=== PATIENT | male | born 1960 | race Caucasian/White ===

== ENCOUNTER 2017-06-13 17:02 | Emergency (ER) | payer MEDICARE, MEDICAID, SELFPAY ==
[2017-06-13 17:03] VITALS: BP 145/118; PULSE 96; RESP 18; TEMP 36.1; O2SAT 99; BMI 27.3
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
[2017-06-13] MEDS: oxyCODONE 5 MG Tablet 10 MG PO (18:56)
[2017-06-13 19:57] VITALS: BP 144/106; PULSE 89; O2SAT 97
[2017-06-13] MEDS: HYDROcodone Bitartrate/Apap 5/325 Tablet PO (19:58)
== END 2017-06-13 20:01 | disposition home or self-care (01) ==
LOC: ED 18:34
PROVIDERS: Emergency Provider Emergency Medicine; Family Provider Family Medicine Geriatric Medicine; PCP Family Medicine Geriatric Medicine
DX: S20.211A Contusion of right front wall of thorax, initial encounter (principal); S30.1XXA Contusion of abdominal wall, initial encounter; Y04.2XXA Assault by strike against or bumped into by another person, initial encounter; Y93.9 Activity, unspecified; Y92.89 Other specified places as the place of occurrence of the external cause; Y99.9 Unspecified external cause status; I31.3 Pericardial effusion (noninflammatory); I10 Essential (primary) hypertension; E78.00 Pure hypercholesterolemia, unspecified; Z72.0 Tobacco use
CPT/HCPCS: 71250; 74176; 99283

== ENCOUNTER → 2018-06-10 15:25 | Outpatient (CLI) | payer MEDICARE, MEDICAID, SELFPAY ==
[2018-06-10 16:37] LABS: Absolute Lymphocyte Count 2.54 X10^3/ul (0.83-4.51); Absolute Neutrophil Count 3.1 X10^3/uL (2.0-7.7); Basophil# 0.05 X10^3/uL; Basophil% 0.7 % (0-1); Eosinophil# 0.33 X10^3/uL; Eosinophils% 4.9 % (0-5); Hematocrit 42.7 % (40-54); Hemoglobin 13.9 g/dl (13.0-16.5); Lymphocyte # 2.54 X10^3/ul (4.0); Lymphocyte % 37.4 % (19-41); Mean Corp Hgb Conc 32.6 g/gl (32-36); Mean Corpuscular Hgb 32.3 pg (27.0-32.0); Mean Corpuscular Volume 99.1 fL (80-94); Mean Platelet Vol. 9.7 fl (6.2-12.0); Monocyte# 0.82 X10^3/uL; Monocyte% 12.1 % (0-10); Neutrophil # 3.05 X10^3/uL (2.7-7.7); Neutrophil % 44.8 % (47-70); Platelet Count 213 K/mm3 (150-450); RBC Distribution Width CV 14.1 % (11.6-14.6); RBC Distribution Width SD 51.3 fl (35.1-43.9); Red Blood Count 4.31 M/mm3 (4.6-6.2); White Blood Count 6.8 K/mm3 (4.4-11.0)
[2018-06-10 16:41] LABS: POSITIVE COUNT NO; POSITIVE DIFFERENTIAL NO; POSITIVE MORPHOLOGY NO
[2018-06-10 17:02] LABS: Vitamin D,25 Hydroxy 14.3 ng/mL (29.95-100.01)
[2018-06-10 17:08] LABS: ALB/GLOB Ratio 0.7 RATIO (0.9-2.4); AST(SGOT) 129 U/L (15-37); Alanine Aminotransfer ALT/SGPT 172 U/L (16-61); Albumin, Serum 2.9 g/dL (3.2-5.0); Alkaline Phosphatase 99 U/L (45-117); Anion Gap 7 (5-15); BUN 12 mg/dL (7-18); BUN/Creat Ratio 15.5 RATIO (10-20); Calcium,Total 8.7 mg/dL (8.5-10.1); Chloride 102 mmol/L (98-107); Creatinine, Serum 0.77 mg/dL (0.70-1.30); EST Glomerular Filtration Rate 110 mL/min (>60); Est Glom Filt Rate - Afr Amer 133 mL/min (>60); Glucose 89 mg/dL (74-106); PSA,Total - Annual Screen 0.61 ng/mL (0.00-4.00); Potassium 4.1 mmol/L (3.5-5.1); Protein, Total 6.9 g/dL (6.4-8.2); Sodium Level 139 mmol/L (136-145); Thyroid Stim Hormone (TSH) 2.13 uIU/mL (0.358-3.74)
[2018-06-12 13:12] LABS: Hep C Antibodies >11.0 s/co ratio (0.0-0.9)
== END ==
PROVIDERS: Family Provider Family Medicine Geriatric Medicine; PCP Family Medicine Geriatric Medicine; Visit Provider Family Medicine Geriatric Medicine
DX: I10 Essential (primary) hypertension (principal); E55.9 Vitamin D deficiency, unspecified; Z13.89 Encounter for screening for other disorder; Z12.5 Encounter for screening for malignant neoplasm of prostate
CPT/HCPCS: 36415; 80053; 82306; 84153; 84443; 85025; 86803; G0103

== ENCOUNTER → 2018-06-15 16:13 | Outpatient (CLI) | payer MEDICARE, MEDICAID, SELFPAY | PROVIDERS: Family Provider Family Medicine Geriatric Medicine; PCP Family Medicine Geriatric Medicine; Visit Provider Family Medicine Geriatric Medicine | DX: B17.10 Acute hepatitis C without hepatic coma (principal) | CPT/HCPCS: 36415 ==

== ENCOUNTER → 2018-06-30 14:50 | Outpatient (CLI) | payer MEDICARE, MEDICAID, SELFPAY ==
[2018-06-30 16:56] LABS: ALB/GLOB Ratio 0.8 RATIO (0.9-2.4); AST(SGOT) 68 U/L (15-37); Alanine Aminotransfer ALT/SGPT 107 U/L (16-61); Albumin, Serum 3.3 g/dL (3.2-5.0); Alkaline Phosphatase 116 U/L (45-117); Anion Gap 4 (5-15); BUN 14 mg/dL (7-18); BUN/Creat Ratio 16.8 RATIO (10-20); Calcium,Total 8.5 mg/dL (8.5-10.1); Chloride 109 mmol/L (98-107); Creatinine, Serum 0.84 mg/dL (0.70-1.30); EST Glomerular Filtration Rate 100 mL/min (>60); Est Glom Filt Rate - Afr Amer 121 mL/min (>60); Globulin 4.2 g/dL (2.2-4.2); Glucose 100 mg/dL (74-106); Potassium 4.1 mmol/L (3.5-5.1); Protein, Total 7.5 g/dL (6.4-8.2); Sodium Level 138 mmol/L (136-145)
[2018-06-30 17:40] LABS: HIV - WCH Non-Reactive (Nonreactive)
== END ==
PROVIDERS: Family Provider Family Medicine Geriatric Medicine; PCP Family Medicine Geriatric Medicine; Visit Provider Family Medicine Geriatric Medicine
DX: K74.69 Other cirrhosis of liver (principal); F10.20 Alcohol dependence, uncomplicated; Z20.828 Contact with and (suspected) exposure to other viral communicable diseases
CPT/HCPCS: 36415; 80053; 80320; 86703; G0480

== ENCOUNTER → 2019-11-24 11:09 | Outpatient (CLI) | payer MEDICARE, MEDICAID, SELFPAY ==
[2019-11-24 15:44] LABS: AST(SGOT) 16 U/L (15-37); Alanine Aminotransfer ALT/SGPT 18 U/L (16-61); Albumin, Serum 3.1 g/dL (3.2-5.0); Alkaline Phosphatase 76 U/L (45-117); CRP 7.12 mg/L (0.0-3.0); GGTP 13 U/L (15-85); Globulin 3.9 g/dL (2.2-4.2); T4 Total, Thyroxin 6.1 ug/dL (4.5-12.1); Thyroid Stim Hormone (TSH) 3.35 uIU/mL (0.358-3.74)
[2019-11-26 20:07] LABS: Endomysial Antibody IgA Negative (Negative)
[2019-11-26 20:27] LABS: Immunoglobulin A 377 mg/dL (90-386); t-Transglutaminase IgA <2 U/mL (0-3)
== END ==
PROVIDERS: PCP Family Medicine Geriatric Medicine; Referring Provider Internal Medicine Gastroenterology; Visit Provider Internal Medicine Gastroenterology
DX: B19.20 Unspecified viral hepatitis C without hepatic coma (principal); K59.00 Constipation, unspecified; R10.9 Unspecified abdominal pain
CPT/HCPCS: 36415; 80076; 82784; 82977; 83516; 84436; 84443; 86140; 86255

== ENCOUNTER → 2022-03-16 | Outpatient (CLI) | payer MEDICARE, SELFPAY ==
--- NOTE | 2022-03-16 10:20 | US_ITS ---
STUDY: ABDOMINAL ULTRASOUND - RIGHT UPPER QUADRANT REASON FOR VISIT: Male, 61 years old abnormal LFTs TECHNIQUE: Ultrasound evaluation of the right upper quadrant was performed with real-time and static melchor-scale imaging. TECHNICAL QUALITY: Limited. Examination limited by bowel gas. COMPARISON: None. FINDINGS: Liver: The liver measures 16.1 cm. There is a heterogeneous echogenicity of the liver. The bile ducts are within normal limits. There is hepatic color flow. The direction of portal flow is hepatopetal. There is no demonstrated mass lesion. Gallbladder: Normal distended gallbladder. The gallbladder wall measures 1 mm. There is a negative sonographic Vasques''s sign. There is no pericholecystic fluid. There are no gallstones. Common Bile Duct (C.B.D.): The common bile duct measures 5 mm. Pancreas: Visualized pancreas is sonographically normal Right Kidney: Normal size of the right kidney. The right kidney measures 11.0 x 5.3 x 4.7 cm. Normal renal cortex. The right cortex measures 1.3 cm. There is no demonstrated renal mass or cyst. There is no right hydronephrosis. US/Liver IMPRESSION: Heterogeneous echotexture within the liver suggests early fatty infiltration, no discrete lesion. Electronically Signed: Nate Landaverde MD at 10:58 EST ,
[2022-03-16 11:36] LABS: Anion Gap 7 (5-15); BUN 15 mg/dL (7-18); BUN/Creat Ratio 16.6 RATIO (10-20); Calcium,Total 8.8 mg/dL (8.5-10.1); Chloride 105 mmol/L (98-107); EST Glomerular Filtration Rate 90 mL/min (>60); Est Glom Filt Rate - Afr Amer 109 mL/min (>60); Glucose 113 mg/dL (74-106); Potassium 4.3 mmol/L (3.5-5.1); Sodium Level 142 mmol/L (136-145)
== END | disposition home or self-care (01) ==
PROVIDERS: PCP Nurse Practitioner Primary Care; Referring Provider Internal Medicine Cardiovascular Disease; Visit Provider Internal Medicine Cardiovascular Disease
DX: B19.20 Unspecified viral hepatitis C without hepatic coma (principal); I50.22 Chronic systolic (congestive) heart failure; I48.91 Unspecified atrial fibrillation
CPT/HCPCS: 36415; 76705; 80048

== ENCOUNTER → 2023-04-01 | Outpatient (CLI) | payer MEDICARE, SELFPAY ==
--- OUTSIDE RECORDS SUMMARY | 2023-04-01 12:33 | XMS RPT_ITS | CCD ---
Author Name Unknown Address [address] [place] [address] Organization [facility] Care Team Providers Care Healthcare Advisory Services Manager Name Role Phone Gabbie Blu Timbo Unavailable Unavailable PHYSICIAN, MISC Unavailable Unavailable TYRESE CONKLIN Primary Care Physician ([phone]) TYRESE CONKLIN Primary Care Physician ([phone]) CARRINGTON KUNZ DO Primary Care Physician CARRINGTON KUNZ DO Primary Care Unavailable CARRINGTON KUNZ DO Attending Unavailable CARRINGTON KUNZ DO Attending Unavailable CARRINGTON KUNZ DO Primary Care Unavailable Medications Current Medications Medication Drug Class(es) Dates Sig (Normalized) Sig (Original) carvedilol 25 mg oral tablet (4 sources) alpha-Adrenergic Reina, beta-Adrenergic Reina Start: 09-20-2022 carvedilol 25 mg oral tablet Dose : 25 mg = 1 tab(s), Oral, BIDM, # 180 tab(s), 0 Refill(s), Pharmacy: [facility], 165.1, cm, 09/20/22 14:06:00 EDT, Height, kg, 09/20/22 14:06:00 EDT, Dosing Weight Start Date: 09/20/22 Status: Ordered Problems Problem Classification Problem Date Documented Da te Episodic/Chronic Cardiac dysrhythmias (4 sources) Atrial fibrillation 09-21-2018 Chronic Coagulation and hemorrhagic disorders (2 sources) Hypercoagulability state 08-01-2022 Chronic Conduction disorders (4 sources) Long QT syndrome; Translations: [Long QT syndrome] Chronic Congestive heart failure; nonhypertensive (7 sources) Chronic systolic heart failure; Translations: [Diastolic heart failure] 09-21-2019 Chronic Coronary atherosclerosis and other heart disease (4 sources) Coronary arteriosclerosis 12-06-2019 Chroni c Disorders of lipid metabolism (4 sources) Dyslipidemia; Translations: [Pure hyperglyceridemia] 10-05-2019 Chronic Essential hypertension (4 sources) Hypertensive disorder; Translations: [Essential hypertension] 09-21-2019 Chronic Hepatitis (2 sources) Viral hepatitis C 09-21-2018 Episodic Mood disorders (4 sources) Depressive disorder; Translations: [Major depression in full remission] 09-21-2018 Chronic Other aftercare (2 sources) Long-term current use of anticoagulant 08-01-2022 Episodic Other bone disease and musculoskeletal deformities (2 sources) Avascular necrosis of bone 12-23-2020 Chronic Other bone disease and musculoskeletal deformities (2 sources) Avascular necrosis of bone of hip 08-01-2022 Chronic Results Test Name Value Interpretation Reference Range Facil ity Encounters Encounter Date Encounter Type Care Provider Facility Start: 03-31-2023 End: 03-31-2023 Patient encounter procedure BRITTON FARAH MD [facility] Start: 01-22-2023 End: 01-23-2023 ambulatory CARRINGTON KUNZ DO Facility:[facility] Start: 09-12-2022 End: 09-13-2022 ambulatory CARRINGTON KUNZ DO Facility:[facility] Start: 09-12-2022 End: 09-12-2022 Patient encounter procedure CARRINGTON KUNZ DO [facility] Start: 12-20-2021 End: 12-20-2021 Patient encounter procedure TYRESE HSU [employer]AL CARETAKER[employer]LAYUP WORKER [facility] Start: 07-02-2021 End: 07-02-2021 Patient encounter procedure TYRESE HSU [employer]IMAL CARETAKER[employer]LAYUP WORKER [facility] Start: 09-15-2017 End: 09-15-2017 Emergency department patient visit [facility] Facility:[facility] Procedures Date Procedure Procedure Detail Performing Clinician Start: 10-28-2019 Cardiac catheterization TYRESE HSU [employer]AL CARETAKER-LAYUP WORKER Start: 09-15-2019 Echocardiography TYRESE RODRIGUEZ [employer]IMAL CARETAKER-LAYUP WORKER Immunizations Immunization Date Immunization Notes Care Provider Fa cility 01-24-2023 influenza, injectabl e, quadrivalent, contains preservative; Translations: [Fluarix PF Quadrivalent ] BRITTON FARAH MD [facility] 09-20-2022 tetanus toxoid, redu asaf diphtheria toxoid, and acellular pertussis vaccine, adsorbed; Translations: [Boostrix (Tdap)] BRITTON FARAH MD [facility] Payers Date Payer Category Payer Unknown [id number] 1960 Unknown [id number] 1960 Unknown [id number] Medicare [id number] Social History Date Type Detail Facility Start: 09-21-2018 End: 12-20-2021 Tobacco smoking status Ex-smoker (finding) [facility] Evaluation + Plan note 07-04-2021 Laboratory Note Date & Type Note Facility 07-04-2021 Evaluation + Plan note Future Scheduled TestsFolate Level 07/04/21Prostate Specific Antigen 12/26/20Vitamin B12 Level 07/04/21Complete Blood Count 12/20/21Complete Blood Count 12/26/20Complete Blood Count 12/04/21Lipid Profile 12/20/21Lipid Profile 12/26/20Lipid Profile 12/04/21Complete Metabolic Panel 12/20/21Complete Metabolic Panel 12/26/20Complete Metabolic Panel 12/04/21 [facility] Evaluation + Plan note LaboratoryRadiology Note Date & Type Note Facility Evaluation + Plan note Future Appointments Appointment Date:12/14/2021 03:30:00 PM Scheduled Provider:TYRESE HSU Location:[facility] Appointment Type: OV Future Scheduled TestsProstate Specific Antigen 12/26/20Complete Blood Count 12/26/20Lipid Profile 12/26/20Complete Metabolic Panel 12/26/20XR Ribs 2 Views Left/PA Chest (AO) 08/14/20XR Chest 2 Views (PA & Lateral) 08/04/20 [facility] Evaluation + Plan note Note Date & Type Note Facility Evaluation + Plan note Future Appointments Appointment Date:09/20/2022 02:00:00 PM Scheduled Provider:CARRINGTON KUNZ DO Location:[facility] Appointment Type:PC OV Diagnostic Tests PendingLDL-Cholesterol, Direct 09/12/22 [facility] Evaluation + Plan note Laboratory Note Date & Type Note Facility Evaluation + Plan note Future Appointments Appointment Date:07/25/2023 03:00:00 PM Scheduled Provider:CARRINGTON KUNZ DO Location:[facility] Appointment Type:PC OV Future Scheduled TestsAlbumin/Creatinine Ratio, Random Urine 09/20/22 [facility] Hospital course Narrative Note Date & Type Note Facility Hospital course Narrative No data available for this section [facility] Hospital Discharge instructions Note Date & Type Note Facility Hospital Discharge instructions No data available for this section [facility] Progress note Note Date & Type Note Facility Progress note No data available for this section [facility] Summary Purpose Family History No Family History Records Found No data available for this section No Family History Records Found No data available for this section Advance Directives No Advanced Directives Records FoundNo Advanced Directives Records Found Additional Source Comments (unrecognized sect ion and content) No Status Records FoundNo Status Records Found INFORMATION SOURCE (unrecogn ized section and content) DATE CREATED AUTHOR AUTHOR'S ORGANIZ ATION 01/25/2023 [facility] ([place]) Care Team (unrecognized sect ion and content) Personnel Name: TYRESE HSU Address: [address] [place] [address]- Care Team Personnel Name: DARRYL COKER MD Position: Physician Member Role: Road Commissioner Address: Address: [address] [facility] [address] [place] [address]- [place] Name: GISELLA AVENDANO MD Position: P4 Physician - Cardiology Member Role: Operator Command Support Systems Address: Address: [address] [facility] [address] [id number]- Name: CARRINGTON KUNZ DO Position: P4 Physician - Primary Care Member Role: Primary Care Physician Address: Address: [address] [place] [id number]- Care Team Related Persons Name: ARNOLD LUCAS Care Team Personnel Name: DARRYL COKER MD Position: Physician Member Role: Road Commissioner Address: Address: [address] [facility] [address] [place] [address]- Name: GISELLA AVENDANO MD Position: P4 Physician - Cardiology Member Role: Operator Command Support Systems Address: Address: [facility] [place] [id number]- [place] Name: CARRINGTON KUNZ DO Position: P4 Physician - Primary Care Member Role: Primary Care Physician Address: Address: [address] [place] [address]- Care Team Related Persons Name: ARNOLD LUCAS Care Team (unrecognized sect ion and content) Care Team Personnel Name: TYRESE HSULAYUP WORKER Position: P4 Advanced Practice Nurse Member Role: Primary Care Physician Address: Address: [address] [place] [address]- Name: DARRYL COKER MD Position: Physician Member Role: Road Commissioner Address: Address: [address] [facility] [address] [place] [address]- [place] Name: GISELLA AVENDANO MD Position: P4 Physician - Cardiology Member Role: Operator [employer] Support Systems Address: Address: [address] [facility] [address] [place] [id number]- Care Team Related Persons Name: ARNOLD LUCAS FOR RECORDS PERTAINING TO PATIENTS WHO ARE OR HAVE BEEN ENROLLED IN A CHEMICAL DEPENDENCY/SUBSTANCEABUSE PROGRAM, SOME INFORMATION MAY BE OMITTED. This clinical summary was aggregated from multiple sources. Caution should be exercised in using it in the provision of clinical care. This summary normalizes information from multiple sources, and as a consequence, information in this document may materially change the coding, format and clinical context of patient data. In addition, data may be omitted in some cases. CLINICAL DECISIONS SHOULD BE BASED ON THE PRIMARY CLINICAL RECORDS. [facility]. provides no warranty or guarantee of the accuracy or completeness of information in this document.
[2023-04-01 13:50] LABS: Anion Gap 4 (5-15); BUN 22 mg/dL (7-18); BUN/Creat Ratio 24.8 RATIO (10-20); Calcium,Total 9.6 mg/dL (8.5-10.1); Chloride 104 mmol/L (98-107); Creatinine, Serum 0.89 mg/dL (0.70-1.30); EST Glomerular Filtration Rate 92 mL/min (>60); Est Glom Filt Rate - Afr Amer 111 mL/min (>60); Glucose 101 mg/dL (74-106); Sodium Level 135 mmol/L (136-145)
== END | disposition home or self-care (01) ==
LOC: LAB 12:15
PROVIDERS: PCP Nurse Practitioner Primary Care; Referring Provider Internal Medicine Cardiovascular Disease; Visit Provider Internal Medicine Cardiovascular Disease
DX: I42.8 Other cardiomyopathies (principal); I42.9 Cardiomyopathy, unspecified; I50.22 Chronic systolic (congestive) heart failure; I48.91 Unspecified atrial fibrillation; I12.9 Hypertensive chronic kidney disease with stage 1 through stage 4 chronic kidney disease, or unspecified chronic kidney disease
CPT/HCPCS: 36415; 80048

== ENCOUNTER → 2024-05-14 | Outpatient (CLI) | payer MEDICARE, SELFPAY ==
--- NOTE | 2024-05-14 13:56 | ECHOCS_ITS ---
Reason For Study Reason For Study: CAD/ASHD Procedure This was a 2D Doppler, Color Flow transthoracic echocardiogram. The study was technically difficult. Due to body habitus. Contrast injection was performed. Exam performed in department. Left Ventricle Mild concentric left ventricular hypertrophy. Normal LV size. The left ventricular ejection fraction is 65 %. Stage 1 diastolic dysfunction. Right Ventricle Normal right ventricle. Atria There is severe biatrial dilatation. Mitral Valve Trivial mitral valve insufficiency. Tricuspid Valve Trivial tricuspid valve insufficiency. Normal pulmonary artery pressure. Aortic Valve Trisinus/trileaflet aortic valve. Pulmonic Valve The pulmonic valve is not well visualized. Great Vessels Mildly dilated aortic root. Pericardium/Pleural No pericardial effusion. Medication 22 gauge I.V. with prn adaptor inserted into left arm. Diluted definity 3.0ml given slow IV push to enhance endocardial definition. MMode/2D Measurements & Calculations LVIDd: 5.8 cm IVSd: 1.2 cm Ao root diam: 4.1 cm LVIDs: 4.2 cm LVPWd: 1.3 cm RVDd: 3.5 cm FS: 27.0 % LAV(MOD-bp): 97.9 ml LVAd ap4: 21.9 cm2 SV(MOD-sp4): 35.2 ml LAV(MOD-bp) Indexed: 45.5 ml/m2 LVLd ap4: 7.2 cm SI(MOD-sp4): 16.4 ml/m2 LAV(MOD-sp2): 80.9 ml EDV(MOD-sp4): 56.3 ml LAV(MOD-sp4): 112.2 ml EDV(sp4-el): 56.6 ml LVAs ap4: 11.9 cm2 LVLs ap4: 5.8 cm ESV(MOD-sp4): 21.1 ml ESV(sp4-el): 20.9 ml EF(MOD-sp4): 62.6 % EF(sp4-el): 63.0 % SV(sp4-el): 35.7 ml LA A4 area: 31.6 cm2 LA dimension(2D): 5.9 cm RA A4 area: 18.1 cm2 TAPSE: 2.2 cm Doppler Measurements & Calculations MV E max khadra: 78.5 cm/sec Ao V2 max: 110.1 cm/sec LV V1 max: 61.4 cm/sec Ao max P.9 mmHg LV V1 max P.5 mmHg Ao V2 mean: 86.8 cm/sec LV V1 mean P.96 mmHg Ao mean P.2 mmHg LV V1 mean: 47.3 cm/sec Ao V2 VTI: 20.8 cm LV V1 VTI: 12.2 cm AV (velocity ratio): 0.59 PA V2 max: 67.8 cm/sec TR max khadra: 237.5 cm/sec PA V2 mean: 52.3 cm/sec TR max P.6 mmHg ECHO/Echo Complete W/ Contrast Interpretation Summary The study was technically difficult. Mild concentric left ventricular hypertrophy. The left ventricular ejection fraction is 65 %. Stage 1 diastolic dysfunction. There is severe biatrial dilatation. Mildly dilated aortic root. Ordering Physician: Win Hansen Referring Physician: Jaime Morrison Performed By: Keisha Sequeira RDCS, RVT
== END | disposition home or self-care (01) ==
LOC: CVS 13:56
PROVIDERS: Referring Provider Internal Medicine Cardiovascular Disease; Visit Provider Internal Medicine Cardiovascular Disease
DX: I42.8 Other cardiomyopathies (principal)
CPT/HCPCS: 93306; Q9957; A4216; C8929